=== PATIENT | male | born 1995 | race Two or more races ===

== ENCOUNTER 2020-01-01 17:35 | Emergency (ER) | payer OTHER ==
[~2020-01-01] VITALS: Ht 182.9 cm; Wt 204.6 kg
[2020-01-01] MEDS ORDERED: ACETAMINOPHEN 500 MG TABLET PO ONE (18:45)
[2020-01-01 19:13] VITALS: BP 152/93
== END 2020-01-01 20:48 | disposition home or self-care (01) ==
LOC: EMS 17:41
DX: M25.571 Pain in right ankle and joints of right foot (principal); R60.0 Localized edema; F17.210 Nicotine dependence, cigarettes, uncomplicated
CPT/HCPCS: 99406